=== PATIENT | male | born 1945 | race Two or more races ===

== ENCOUNTER 2018-11-03 18:19 | Emergency (ER) | payer MEDICARE, MEDICAID ==
[~2018-11-03] VITALS: Ht 160 cm; Wt 56.0 kg
[2018-11-03 21:33] VITALS: BP 132/71
== END 2018-11-03 21:34 | disposition home or self-care (01) ==
LOC: ER 18:19
DX: H10.9 Unspecified conjunctivitis (principal); H17.9 Unspecified corneal scar and opacity; H33.22 Serous retinal detachment, left eye; H54.62 Unqualified visual loss, left eye, normal vision right eye
CPT/HCPCS: 99283

== ENCOUNTER 2019-04-22 10:59 | Emergency (ER) | payer MEDICARE, MEDICAID ==
[~2019-04-22] VITALS: Ht 154.9 cm; Wt 55.0 kg
[2019-04-22 11:45] VITALS: BP 139/80
[2019-04-22] MEDS ORDERED: BACITRACIN ZINC OINT UDPKT TOP ONE (13:00)
[2019-04-22] MEDS ORDERED: LIDOCAINE HCL/PF 1% 10 MG/ML 5ML VIAL IJ ONE (13:00)
[2019-04-22] MEDS ORDERED: TETANUS, DIPHTHERIA, PERTUSSIS VAC/PF 0.5ML (>7YR OLD) IM ONE (13:45)
== END 2019-04-22 14:35 | disposition home or self-care (01) ==
LOC: ER 10:59
DX: S01.01XA Laceration without foreign body of scalp, initial encounter (principal); R51 Headache; W22.8XXA Striking against or struck by other objects, initial encounter; Y93.89 Activity, other specified; Y92.89 Other specified places as the place of occurrence of the external cause; Y99.8 Other external cause status
CPT/HCPCS: 12001; 70450; 90471; 90715; 99284; J3490

== ENCOUNTER 2019-04-24 08:01 | Emergency (ER) | payer MEDICARE, MEDICAID ==
[~2019-04-24] VITALS: Ht 167.6 cm; Wt 57.0 kg
[2019-04-24 08:23] VITALS: BP 121/67
== END 2019-04-24 09:10 | disposition home or self-care (01) ==
LOC: ER 08:13
DX: S01.01XA Laceration without foreign body of scalp, initial encounter (principal); Z48.00 Encounter for change or removal of nonsurgical wound dressing; X58.XXXA Exposure to other specified factors, initial encounter; Y93.89 Activity, other specified; Y92.89 Other specified places as the place of occurrence of the external cause; Y99.8 Other external cause status
CPT/HCPCS: 99281